=== PATIENT | female | born 1980 | race Caucasian/White ===

== ENCOUNTER 2018-05-29 11:46 | Emergency (ER) | payer BC ==
[~2018-05-29] VITALS: Ht 167.6 cm; Wt 121.7 kg
[2018-05-29 11:59] VITALS: Ht 167.6 cm; Wt 121.7 kg
[2018-05-29] MEDS ORDERED: KETOROLAC 60 MG INJ IM STA (13:06)
[2018-05-29] MEDS ORDERED: ONDANSETRON 4 MG TAB PO ONE (13:30)
[2018-05-29] MEDS ORDERED: ONDANSETRON (ODT) 4 MG TAB ODT STA (13:38)
[2018-05-29] MEDS ORDERED: IBUP-1542 PO (15:24)
[2018-05-29] MEDS ORDERED: TRAM50TA2 PO (15:24)
--- NOTE | 2018-05-29 15:28 | ERD ---
ER Documentation Chief Complaint Chief Complaint Complains of abdominal pain x 3 days HPI 37-year-old female presents with right upper quadrant abdominal pain for last 3 days. She denies any fevers, vomiting. Denies any lower abdominal pain, , urinary complaints. She denies any previous history of gallstones. She denies any cough, shortness breath or chest pain. ROS All systems reviewed and are negative except as per history of present illness. Medications Home Meds Active Scripts Tramadol HCl (Tramadol HCl) 50 Mg Tablet, 50 MG PO Q4 PRN for PAIN, #12 TAB Prov:YUE HURTADO MD 05/29/18 Ibuprofen* (Motrin*) 600 Mg Tab, 600 MG PO Q6, #20 TAB Prov:YUE HURTADO MD 05/29/18 Allergies Allergies: Coded Allergies: No Known Allergy (Unverified , 05/29/18) PMhx/Soc Hx Alcohol Use: No Hx Substance Use: No Hx Tobacco Use: No Smoking Status: Never smoker FmHx Family History: No diabetes, No coronary disease, No other Physical Exam Vitals Vital Signs Date Temp Pulse Resp B/P (MAP) Pulse Ox O2 O2 Flow FiO2 Time Delivery Rate 05/29/18 97.5 74 20 180/85 96 11:59 (116) Physical Exam Const: No acute distress Head: Atraumatic Eyes: Normal Conjunctiva ENT: Normal External Ears, Nose and Mouth. Neck: Full range of motion. No meningismus. Resp: Clear to auscultation bilaterally Cardio: Regular rate and rhythm, no murmurs Abd: Soft, mildly tender right upper quadrant. No tenderness McBurney's point. No rebound. Non distended. Normal bowel sounds Skin: No petechiae or rashes Back: No midline or flank tenderness Ext: No cyanosis, or edema Neur: Awake and alert Psych: Normal Mood and Affect Result Diagram: 05/29/18 1330 05/29/18 1330 Results 24 hrs Laboratory Tests Test 05/29/18 13:30 White Blood Count 8.4 10^3/ul Red Blood Count 5.23 10^6/ul Hemoglobin 13.9 g/dl Hematocrit 44.0 % Mean Corpuscular Volume 84.1 fl Mean Corpuscular Hemoglobin 26.6 pg Mean Corpuscular Hemoglobin Concent 31.6 g/dl Red Cell Distribution Width 14.3 % Platelet Count 280 10^3/UL Mean Platelet Volume 11.1 fl Immature Granulocytes % 0.200 % Neutrophils % 59.9 % Lymphocytes % 30.2 % Monocytes % 6.2 % Eosinophils % 3.0 % Basophils % 0.5 % Nucleated Red Blood Cells % 0.0 /100WBC Immature Granulocytes # 0.020 10^3/ul Neutrophils # 5.0 10^3/ul Lymphocytes # 2.5 10^3/ul Monocytes # 0.5 10^3/ul Eosinophils # 0.3 10^3/ul Basophils # 0.0 10^3/ul Nucleated Red Blood Cells # 0.0 10^3/ul Urine Color YELLOW Urine Clarity SLIGHTLY CLOUDY Urine pH 5.0 Urine Specific [place] 1.024 Urine Ketones NEGATIVE mg/dL Urine Nitrite NEGATIVE mg/dL Urine Bilirubin NEGATIVE mg/dL Urine Urobilinogen NEGATIVE mg/dL Urine Leukocyte Esterase NEGATIVE Yani/ul Urine Microscopic RBC 3 /HPF Urine Microscopic WBC 1 /HPF Urine Squamous Epithelial Cells FEW /HPF Urine Mucus FEW /HPF Urine Hemoglobin 2+ mg/dL Urine Glucose NEGATIVE mg/dL Urine Total Protein NEGATIVE mg/dl Sodium Level 145 mmol/L Potassium Level 4.0 mmol/L Chloride Level 103 mmol/L Carbon Dioxide Level 29 mmol/L Anion Gap 13 Blood Urea Nitrogen 12 mg/dl Creatinine 0.58 mg/dl Est Glomerular Filtrat Rate mL/min > 60 mL/min Glucose Level 101 mg/dl Calcium Level 9.7 mg/dl Total Bilirubin 0.0 mg/dl Direct Bilirubin 0.00 mg/dl Indirect Bilirubin 0.0 mg/dl Aspartate Amino Transf (AST/SGOT) 25 IU/L Alanine Aminotransferase (ALT/SGPT) 40 IU/L Alkaline Phosphatase 72 IU/L Total Protein 8.0 g/dl Albumin 4.5 g/dl Globulin 3.50 g/dl Albumin/Globulin Ratio 1.28 Lipase 53 U/L POC Beta HCG, Qualitative NEGATIVE Current Medications Medications Dose Sig/Joel Start Time Status Last (Trade) Ordered Route PRN Stop Time Admin Dose Reason Admin Ketorolac 60 mg ONCE STAT 05/29/18 DC 05/29/18 Tromethamine IM 13:06 13:42 (Toradol) 05/29/18 13:08 Ondansetron 8 mg ONCE ONCE 05/29/18 DC HCl (Zofran PO 13:30 Tab) 05/29/18 13:40 Ondansetron 8 mg ONCE STAT 05/29/18 DC 05/29/18 HCl (Zofran ODT 13:38 13:42 Odt) 05/29/18 13:40 Procedures/MDM CBC, CMP, lipase, urine shows no significant abnormalities. Urine hCG is negative. Right upper quadrant ultrasound shows fatty infiltration of liver without gallstones, signs of cholecystitis, additional acute abnormalities. Chest X-ray 1V Interpreted by me: Soft Tissue: No acute abnormalities Bones: No acute abnormalities Mediastinum/Cardiac Silhouette/Lungs: No acute abnormalities. Impression- normal 1 view chest x-ray She was given Toradol 60 mg IM and Zofran. Patient presents to quadrant abdominal pain uncertain etiology. Only abnormality is fatty infiltration of the liver. She has no evidence of gallstones, signs of pneumonia. Doubt PE. There is no evidence of related complications. There is no signs of appendicitis, peritonitis, surgical abdomen. She will treated with ibuprofen, tramadol, primary care follow-up and return precautions. The patient was stable with no new complaints during the ER course. Clinically, there is no current evidence to suggest meningitis, sepsis, acute abdomen, pneumonia, stroke, acute coronary syndrome, pulmonary embolism, aortic dissection or any other emergent condition appearing to require further evaluation or hospitalization. Patient counseled regarding my diagnostic impression and care plan. Prior to discharge all questions answered. Pt agrees with treatment plan and understands strict return precautions. Pt is instructed to follow up with primary care provider within 24-48 hours. Precautionary instructions provided including instructions to return to the ER if not improving or for any worsening or changing symptoms or concerns. Departure Diagnosis: Primary Impression: Abdominal pain Abdominal location: right upper quadrant Qualified Codes: R10.11 - Right upper quadrant pain Condition: Stable Patient Instructions: Abdominal Pain Referrals: NO PRIMARY,CARE PHYSICIAN (PCP) Additional Instructions: Examines normal hoy. Cheque otro vez con aguilar doctor primario en el proximo castaneda or regresa para mas o nueva simptomas. YUE HURTADO MD May 29, 2018 15:28
== END 2018-05-29 15:34 | disposition home or self-care (01) ==
LOC: FTE 11:46
DX: R10.11 Right upper quadrant pain (principal)
CPT/HCPCS: 71045; 76705; 80053; 81001; 81025; 83690; 85025; J1885; 36415; 96372